=== PATIENT | female | born 1960 | race Caucasian/White ===

== ENCOUNTER → 2019-03-12 | Outpatient (CLI) | payer BC, MEDICAID, OTHER ==
--- NOTE | 2019-03-15 09:42 | MM ---
Reason for exam: screening (asymptomatic). Last mammogram was performed 3 years and 5 months ago. History: Patient is postmenopausal. Family history of breast cancer in mother at age 70. Physical Findings: A clinical breast exam by your physician is recommended on an annual basis and results should be correlated with mammographic findings. MG Screening Mammo w CAD Bilateral CC and MLO view(s) were taken. Prior study comparison: October 13, 2015, bilateral MG 3d screening mammo w/cad. September 16, 2014, mammogram, performed at [facility]. There are scattered fibroglandular densities. There is no discrete abnormality. No significant changes when compared with prior studies. ASSESSMENT: Negative, BI-RAD 1 RECOMMENDATION: Routine screening mammogram of both breasts in 1 year.
== END | disposition home or self-care (01) ==
LOC: RADMAMWWP 09:47
PROVIDERS: ATTEND Family Medicine
DX: Z12.31 Encounter for screening mammogram for malignant neoplasm of breast (principal)
CPT/HCPCS: 77067

== ENCOUNTER → 2020-12-11 | Outpatient (CLI) | payer OTHER ==
--- NOTE | 2020-12-11 15:38 | CT ---
EXAMINATION TYPE: CT abdomen pelvis wo con DATE OF EXAM: 12/11/2020 COMPARISON: None HISTORY: hematuria for several months CT DLP: 1100.3 mGycm Examination of the solid and hollow viscera is limited given the lack of contrast. FINDINGS: LUNG BASES: No evidence for nodule. No evidence for infiltrate. Small sliding-type hiatal hernia. LIVER/GB: There is evidence of cholelithiasis. No space-occupying hepatic lesion. PANCREAS: No pancreatic mass identified. No inflammatory process seen. SPLEEN: No evidence for splenomegaly. No intrasplenic lesions seen. ADRENALS: No adrenal nodules identified. No evidence for thickening. KIDNEYS: No evidence for renal mass. No nephrolithiasis. No hydronephrosis. BOWEL: Appendix has a normal appearance. No evidence of bowel obstruction. No inflammatory process. Lymph nodes: No evidence for adenopathy greater than 1 cm. Abdominal aorta: Atheromatous changes seen. No evidence for aneurysm. Genital organs: There is enlargement of the uterus. Correlate with ultrasound. Other: No significant abnormality. IMPRESSION: 1. Nonspecific uterine enlargement. Correlate with ultrasound. 2. Cholelithiasis. 3. Small hiatal hernia.
== END | disposition home or self-care (01) ==
LOC: RADCTMAIN 14:14
PROVIDERS: ATTEND Urology
DX: K80.20 Calculus of gallbladder without cholecystitis without obstruction (principal); K44.9 Diaphragmatic hernia without obstruction or gangrene
CPT/HCPCS: 74176

== ENCOUNTER → 2022-02-08 | Outpatient (CLI) | payer OTHER ==
[2022-02-08 13:36] LABS: African American GFR (CKD) >90 (>60 ml/min/1.73 sqM); Blood Urea Nitrogen 16 mg/dL (7-17); Non-African American GFR(CKD) >90 (>60 ml/min/1.73 sqM)
--- NOTE | 2022-02-08 14:56 | CT ---
EXAMINATION: CT CHEST, ABDOMEN AND PELVIS WITH IV CONTRAST DATE OF EXAMINATION: 02/08/2022. COMPARISON: CT abdomen and pelvis on 12/11/2020. INDICATION: Localized enlargement lymph nodes, anemia and hematuria. PROCEDURE: Axial CT of the chest, abdomen and pelvis was performed following the intravenous adminis tration of 70 ml Isovue 300. Coronal and sagittal reformats were performed. CT dose lowering techniq ues were used, to include: automated exposure control, adjustment for patient size, and/or use of ite rative reconstruction. FINDINGS: CHEST: Mediastinum and Yakelin: There is no axillary, mediastinal or hilar lymphadenopathy. Pleural and Pericardial spaces: There are no pleural or pericardial effusions. Cardiovascular: The thoracic aorta is normal in size without evidence of aneurysm or dissection. Pulmonary Artery: There are no central pulmonary arterial filling defects. Lung Parenchyma and Airways: The lungs are clear. ABDOMEN: Liver and Biliary system: Normal. Adrenal glands: Normal. Kidneys and ureters: Normal. Spleen: Normal. Pancreas: Normal. Gallbladder: A calcified gallstone within the gallbladder.. Lymph nodes, Peritoneum and mesentery: There is no mesenteric or retroperitoneal lymphadenopathy. Gastrointestinal tract: There are no dilated loops of bowel or free intraperitoneal air. . The appe ndix is not clearly seen and may be surgically absent as there does appear to be surgical changes jas r the base of the cecum. Aorta/IVC: There is mild vascular calcification throughout the abdominal aorta without evidence of aneurysmal dilation or dissection.. IVC normal. Abdominal wall: There is some nonspecific stranding seen within the wall in the infraumbilical regio n. A small fat-containing umbilical hernia is also seen.. PELVIS: Fluid: There is no free fluid in the pelvis. Lymph Nodes: There is no pelvic or inguinal lymphadenopathy.. Urinary bladder: Normal. BONES: There are no osseous destructive lesions.. ADDITIONAL SIGNIFICANT FINDINGS: There is marked enlargement of the uterus. There is air seen withi n the endometrial cavity. There is a masslike region seen throughout the right myometrium. These find ings would raise the possibility of malignancy, pelvic inflammatory disease and/or endometritis. DISABILITIES SERVICES OFFICER consult is recommended at this time. Question the possibility of recent procedure.. IMPRESSION: 1. Marked enlargement of the uterus. There is air seen within the endometrial cavity. There is a mass like region seen throughout the right myometrium which could potentially relate to fibroid change. Th dax findings would raise the possibility of malignancy, pelvic inflammatory disease and/or endometrit is. DISABILITIES SERVICES OFFICER consult is recommended at this time. Question the possibility of recent procedure. 2. Cholelithiasis.
== END | disposition home or self-care (01) ==
LOC: RADCTMAIN 12:04
PROVIDERS: ATTEND Internal Medicine Hematology & Oncology
DX: K80.20 Calculus of gallbladder without cholecystitis without obstruction (principal); N85.2 Hypertrophy of uterus; D64.9 Anemia, unspecified; R59.0 Localized enlarged lymph nodes; R31.9 Hematuria, unspecified
CPT/HCPCS: 82565; 84520; 71260; 74177; 36415; Q9967

== ENCOUNTER → 2022-02-20 | Outpatient (CLI) | payer OTHER ==
--- NOTE | 2022-02-21 16:48 | MM ---
Reason for Exam: Screening (asymptomatic). Last mammogram was performed 2 year(s) and 11 month(s) ago. Patient History: Menarche at age 10. First Full-Term at age 19. Postmenopausal. Mother had breast cancer, age 70. Risk Values: Belem 5 year model risk: 3.0%. NCI Lifetime model risk: 12.4%. Prior Study Comparison: 09/16/2014 Screening Mammogram, [facility]. 10/13/2015 Bilateral Screening Mammogram, [facility]. 03/12/2019 Bilateral Screening Mammogram, [facility]. Tissue Density: There are scattered fibroglandular densities. Findings: Analyzed By CAD. Pattern appears symmetrical and stable. Benign vascular calcifications present bilaterally. There is interval development of 4 heterogenous calcifications in the upper outer left mid breast 8 cm from the nipple. This isn't a normal finding. Additional evaluation is recommended No suspicious groups of microcalcifications, spiculated or lobular masses, architectural distortion or other secondary signs of malignancy are mammographically apparent. Overall Assessment: Incomplete: need additional imaging evaluation, BI-RAD 0 Management: Diagnostic Mammogram of the left breast. A negative mammogram report should not preclude additional follow up of suspicious palpable abnormalities. Patient should continue monthly self breast exam. A clinical breast exam by your physician is recommended on an annual basis and results should be correlated with mammographic findings. Electronically signed and approved by: Bonilla Decker D.O. Radiologis
== END | disposition home or self-care (01) ==
LOC: RADMAMWWP 16:14
PROVIDERS: ATTEND Family Medicine
DX: Z12.31 Encounter for screening mammogram for malignant neoplasm of breast (principal); Z78.0 Asymptomatic menopausal state; Z80.3 Family history of malignant neoplasm of breast
CPT/HCPCS: 77063; 77067

== ENCOUNTER → 2022-03-01 | Outpatient (CLI) | payer OTHER ==
--- NOTE | 2022-03-01 13:57 | MM ---
Reason for Exam: Additional evaluation requested from prior study. Last screening mammogram was performed less than 1 month ago. Patient History: Menarche at age 10. First Full-Term at age 19. Postmenopausal. Mother had breast cancer, age 70. Risk Values: Belem 5 year model risk: 3.0%. NCI Lifetime model risk: 12.4%. Prior Study Comparison: 10/13/2015 Bilateral Screening Mammogram, [facility]. 03/12/2019 Bilateral Screening Mammogram, [facility]. 02/20/2022 Bilateral MG 3D screening mammo w/cad, [facility]. Tissue Density: Left: There are scattered fibroglandular densities. Findings: Analyzed By CAD. Grouped coarse heterogenous calcifications within the upper outer left breast at middle depth. Overall Assessment: Suspicious, BI-RAD 4 Management: Stereotactic Core Biopsy of the left breast. A clinical breast exam by your physician is recommended on an annual basis and results should be correlated with mammographic findings. This exam should not preclude additional follow-up of suspicious palpable abnormalities. Results were given to the patient verbally at the time of exam. Electronically signed and approved by: Ciro Bay D.O.
== END | disposition home or self-care (01) ==
LOC: RADMAMWWP 13:32
PROVIDERS: ATTEND Family Medicine
DX: R92.8 Other abnormal and inconclusive findings on diagnostic imaging of breast (principal); Z78.0 Asymptomatic menopausal state; Z80.3 Family history of malignant neoplasm of breast
CPT/HCPCS: 77061; 77065

== ENCOUNTER → 2022-03-15 | Outpatient (CLI) | payer OTHER ==
--- NOTE | 2022-03-17 21:59 | PE ---
EXAMINATION TYPE: PET CT fusion skull to thigh DATE OF EXAM: 03/15/2022 CLINICAL INDICATION:Female, 61 years old with history of R59.0; TECHNIQUE: Following the intravenous administration of 12.4 mCi of F-18 FDG, whole body images are performed from the skull base to the midthigh. Images are reviewed on the computer in the coronal, a xial, and sagittal planes. Reconstructed rotating images are created on independent workstation and reviewed on the computer. A non-contrast CT is performed in conjunction with the PET scan. Glucose level 129 mg/dL COMPARISON: CT 02/08/2022 and 12/11/2020, PET/CT None, FINDINGS: Mediastinal SUV mean is 1.1. Hepatic parenchyma SUV mean is 2.1. SKULL BASE AND NECK: No suspicious radiotracer activity. CHEST, MEDIASTINUM, AND HILAR REGION: No suspicious radiotracer activity. ABDOMEN AND PELVIS: Enlarged uterus measuring 15.3 x 9.3 x 12.4 cm extensive increased FDG activity max SUV 13.3. Radiotr acer uptake does extends to the right lateral aspect towards the suspected right ovary max SUV 9.0. T he right ovary demonstrates similar cystic changes from 2020. Enlarged bilateral external iliac lymph nodes measuring up to 15 mm short axis on the right and 10 mm in short axis on the left without increased radiotracer uptake in this time. OSSEOUS STRUCTURES: No suspicious radiotracer activity. OTHER CT: Atherosclerosis of the arterial vasculature including the carotid bifurcations and coronary arteries. The heart is mildly enlarged for size. Cholelithiasis. Borderline splenomegaly measuring u p to 13.9 cm. IMPRESSION: 1. Enlarged heterogenous uterus with somewhat diffuse increased FDG activity throughout the parenchy ma with fingerlike extension towards the right ovary. There is somewhat similar irregular appearance of the right adnexa/right ovary with cystic changes as seen on prior CT. Given patient's age, this is highly concerning for endometrial carcinoma. Direct visualization is recommended if not already perf ormed. 2. Bilateral external iliac lymph nodes which are enlarged and without increased FDG activity, no ad ditional evidence for enlarged FDG avid lymph nodes at this time.
== END | disposition home or self-care (01) ==
LOC: RADPETMAIN 07:11
PROVIDERS: ATTEND Internal Medicine Hematology & Oncology
DX: N85.2 Hypertrophy of uterus (principal); N83.9 Noninflammatory disorder of ovary, fallopian tube and broad ligament, unspecified; R59.0 Localized enlarged lymph nodes
CPT/HCPCS: 78815; A9552

== ENCOUNTER → 2022-03-18 | Day surgery (SDC) | payer OTHER ==
[2022-03-18 07:30] VITALS: BP 150/84; PULSE 88; RESP 16; TEMP 97.7
--- NOTE | 2022-03-22 09:41 | MM ---
Risk Values: Belem 5 year model risk: 3.0%. NCI Lifetime model risk: 12.4%. Prior Study Comparison: 03/12/2019 Bilateral Screening Mammogram, [facility]. 02/20/2022 Bilateral MG 3D screening mammo w/cad, [facility]. 03/01/2022 Left MG 3D work up w/cad , [facility]. Pathology Description: Marker Left Behind. Approach: CC FA Needle Type: Eviva Skin Nicks: 1 Gauge: 9 The procedure of stereotactic guided core biopsy was explained to the patient. Benefits, alternatives, and risks were discussed. An informed consent was then obtained. The shortness pathway for biopsy was chosen. Shortness pathway was cranial approach. I performed the localization, then performed the remainder of the procedure. Overlying skin is cleansed with Betadine. Lidocaine is used as anesthetic into the skin and deeper tissue. Lidocaine with epinephrine is used as anesthetic during deeper sampling. A vacuum assisted biopsy gun was used to obtain multiple core samples. The patient tolerated the procedure well without any immediate complication. The patient was kept in the radiology department for short stay after the procedure and then discharged home in stable condition. Targeted calcifications are identified in specimen mammogram. Post biopsy mammogram shows the clip to appear in satisfactory position relative to the targeted area of concern on the preprocedure images. Impression: SUCCESSFUL, UNCOMPLICATED STEREOTACTIC GUIDED CORE BIOPSY OF AREA OF CONCERN IN THE LEFT BREAST. PATHOLOGY STATUS: Results pending Low to intermediate index of suspicion noted at time of procedure. Pathology Results: Result: Benign, Fibroadenomatoid hyperplasia. LEFT BREAST, STEREOTACTIC NEEDLE CORE BIOPSY: Fibroadenomatoid hyperplasia with calcifications and background fibrocystic changes. Overall Assessment: Benign Management: Diagnostic Mammogram of the left breast in 6 months. Electronically signed and approved by: Garcia Redd M.D.
== END ==
LOC: RADMAMWWP 06:59
PROVIDERS: ATTEND Family Medicine
DX: N60.12 Diffuse cystic mastopathy of left breast (principal); R92.1 Mammographic calcification found on diagnostic imaging of breast; N62 Hypertrophy of breast
CPT/HCPCS: 88305; 19081; A4648; J2001

== ENCOUNTER → 2024-05-20 | Outpatient (CLI) | payer MEDICARE, OTHER ==
--- NOTE | 2024-05-20 12:48 | MM ---
Reason for Exam: Screening (asymptomatic). Last mammogram was performed 2 year(s) and 3 month(s) ago. Patient History: Menarche at age 10. First Full-Term at age 19. Postmenopausal. Endometrial cancer at or over age 48. Previous Hyperplasia w/o Atypia at age 61. 03/18/2022, Benign MG stereo VAD BX LT on the left side. Mother had breast cancer, age 70. Risk Values: Belem 5 year model risk: 3.7%. NCI Lifetime model risk: 13.6%. Prior Study Comparison: 03/12/2019 Bilateral Screening Mammogram, [facility]. 02/20/2022 Bilateral MG 3D screening mammo w/cad, [facility]. 03/01/2022 Left MG 3D work up w/cad LT, [facility]. Tissue Density: The breasts are heterogeneously dense, which may obscure small masses. Findings: Analyzed By CAD. There is no suspicious group of microcalcifications or new suspicious mass in either breast. Surgical clip within the left breast. Benign-appearing calcifications. Chronic subcentimeter ulcer. I nodule upper outer right breast likely related to benign lymph node. Overall Assessment: Benign, BI-RAD 2 Management: Screening Mammogram of both breasts in 1 year. . Patient should continue monthly self-breast exams. A clinical breast exam by your physician is recommended on an annual basis. This exam should not preclude additional follow-up of suspicious palpable abnormalities. Note on Belem scores and lifetime risk: 1. A Belem score greater than 3% is considered moderate risk. If this is the case, consider specialist referral to assess eligibility for a risk reducing agent. 2. If overall lifetime risk for the development of breast cancer is 20% or higher, the patient may qualify for future screening with alternating mammogram and breast MRI. [facility], , 05/20/2024 12:45 PM. Electronically signed and approved by: Miky Arellano M.D. Radiologis
== END | disposition home or self-care (01) ==
LOC: RADMAMWWP 12:31
PROVIDERS: ATTEND Family Medicine
DX: Z12.31 Encounter for screening mammogram for malignant neoplasm of breast (principal); R92.333 Mammographic heterogeneous density, bilateral breasts; Z78.0 Asymptomatic menopausal state; Z80.3 Family history of malignant neoplasm of breast
CPT/HCPCS: 77063; 77067

== ENCOUNTER 2024-07-21 07:52 | Day surgery (SDC) | payer MEDICARE, OTHER ==
[2024-07-21 08:31] VITALS: TEMP 98.2
[2024-07-21] MEDS: IV FLUID CONTINUATION 1,000 ML IV ONE ×2 (08:40→10:31)
[2024-07-21] MEDS: LACTATED RINGERS 1,000 ML IV SCH (08:45)
[2024-07-21 08:48] LABS: Glucose,Whole Blood 126 mg/dL (70-110)
[2024-07-21] MEDS ORDERED: PROPOFOL 10 MG/ML 20 ML VIAL IV ONE (08:57)
--- NOTE | 2024-07-21 09:45 | P.PCN ---
Date of Procedure: 07/21/24 Procedure(s) Performed: BRIEF HISTORY: Patient is a 63-year-old pleasant white female scheduled for an elective colonoscopy as a part of screening for colon cancer. Her last colonoscopy was 11 years ago. PROCEDURE PERFORMED: Colonoscopy with biopsy, snare polypectomy and tattooing with Sydnee ink. PREOPERATIVE DIAGNOSIS: Screening for colon cancer. IV sedation per Anesthesia. PROCEDURE: After informed consent was obtained, the patient, was brought into the endoscopy unit. IV sedation was administered by Anesthesia under continuous monitoring. Digital rectal examination was normal. Initially the Olympus CF-160 flexible video colonoscope was then inserted in the rectum, gradually advanced into the cecum without any difficulty. Careful examination was performed as the scope was gradually being withdrawn. Ileocecal valve and the appendiceal orifice were visualized and appeared normal. Prep was excellent. Mucosa of the cecum, 1.5 cm ulcerated polypoid lesion in the base of the cecum involving y the appendiceal orifice status post multiple biopsies. Rest of the ascending colon, transverse colon, descending colon, appeared normal. In the proximal sigmoid colon at 40 cm from anal verge there was a 2 cm thick pedunculated polyp that was biopsied followed by partial snare polypectomy and tattooed with Sydnee ink. In the mid sigmoid colon at 30 cm from the anal verge there was a 3 to 4 cm round polypoid lesion status post multiple biopsies. In the distal sigmoid colon at 28 cm from anal verge there was another 4 to 5 cm long polypoid lesion and multiple biopsies were done from this area followed by tattooing with Sydnee ink. Moderate sigmoid diverticulosis seen. The rectum appeared normal. Retroflexion was performed in the rectum and no lesions were seen. The patient tolerated the procedure well. IMPRESSION: 1.5 cm ulcerated polypoid lesion in the base of the cecum involving the appendiceal orifice status post multiple biopsies 2 cm thick pedunculated polypoid lesion with ulcerations and exudates in the proximal sigmoid colon 40 cm from the anal verge status post biopsy/partial snare polypectomy followed by tattooing with Sydnee ink 3 to 4 cm round polypoid lesion in the mid sigmoid colon at 30 cm from anal verge status post multiple biopsies 4 to 5 cm round polypoid lesion in the distal sigmoid colon at 28 cm from the anal verge status post multiple biopsies followed by tattooing with Sydnee ink Moderate sigmoid diverticulosis RECOMMENDATIONS: Findings of this examination were discussed with the patient as well as her family. She was advised to follow-up with the biopsy results. She will be seen in the office in 1 week..
[2024-07-21] MEDS: ONDANSETRON 4 MG/2 ML VIAL IVP STA (10:54)
[2024-07-21 11:15] VITALS: BP 119/69; PULSE 87; RESP 14
== END 2024-07-21 11:33 | disposition home or self-care (01) ==
LOC: ORWHC2ENDO 07:52
PROVIDERS: ATTEND Internal Medicine Gastroenterology
DX: Z12.11 Encounter for screening for malignant neoplasm of colon (principal); C18.0 Malignant neoplasm of cecum; C18.7 Malignant neoplasm of sigmoid colon; K57.30 Diverticulosis of large intestine without perforation or abscess without bleeding; I10 Essential (primary) hypertension; E78.5 Hyperlipidemia, unspecified; J45.909 Unspecified asthma, uncomplicated; E11.9 Type 2 diabetes mellitus without complications; Z79.899 Other long term (current) drug therapy; Z88.8 Allergy status to other drugs, medicaments and biological substances; Z79.84 Long term (current) use of oral hypoglycemic drugs; Z79.51 Long term (current) use of inhaled steroids
CPT/HCPCS: 88305; 88342; 88341; 45380; 45385; 45381; J2405; J2704; 44404

== ENCOUNTER 2024-08-04 06:58 | Day surgery (SDC) | payer MEDICARE, OTHER ==
[~2024-08-04 06:58] MED LIST: LIDOCAINE 1% (10MG/ML) FOR IV START INTRADERMA PRN
[2024-08-04] MEDS: IV FLUID CONTINUATION 1,000 ML IV ONE (07:09)
[2024-08-04 07:15] VITALS: TEMP 97.9
[2024-08-04] MEDS: LACTATED RINGERS 1,000 ML IV SCH (07:23)
[2024-08-04 07:29] LABS: Glucose,Whole Blood 169 mg/dL (70-110)
[2024-08-04] MEDS ORDERED: PROPOFOL 10 MG/ML 20 ML VIAL IV ONE (07:58)
[2024-08-04] MEDS ORDERED: LIDOCAINE 2% (PF) 20 MG/ML 5 ML VIAL ONE (07:58)
--- NOTE | 2024-08-04 08:20 | P.PCN ---
Date of Procedure: 08/04/24 Procedure(s) Performed: BRIEF HISTORY: Patient is a 63-year-old, pleasant, white female scheduled upper endoscopy to evaluate for metastatic endometrial carcinoma.. She underwent a colonoscopy 2 weeks ago that revealed multiple polypoid lesions in the colon biopsies which revealed metastatic endometrial carcinoma. She was seen by Dr. Manrique, oncologist who recommended upper endoscopy to her upper GI metastasis PROCEDURE PERFORMED: Esophagogastroduodenoscopy. PREOPERATIVE DIAGNOSIS: Metastatic endometrial carcinoma rule out upper GI pathology. IV sedation per anesthesia. PROCEDURE: After informed consent was obtained, the patient was brought into the endoscopy unit. IV sedation was administered by Anesthesia under continuous monitoring. Initially the Olympus GIF-140 video endoscope was inserted into the mouth. Esophagus intubated without any difficulty. It was gradually advanced into the stomach and duodenum and carefully examined. The bulb and the second part of the duodenum appeared normal. The scope at this time was withdrawn to the stomach, adequately insufflated with air, and upon careful examination, mucosa of the antrum, body, cardia and the fundus appeared normal. There was moderate amount of retained solid food in the stomach suggestive of diabetic gastroparesis. The scope was then withdrawn into the esophagus. Small hiatal hernia noted. The GE junction was located at 39 cm from the incisors. The esophagus appeared normal. There were no erosions or ulcerations seen and the patient tolerated the procedure well. IMPRESSION: 1. Small hiatal hernia. 2. Retained food in the stomach suggestive of diabetic gastroparesis. RECOMMENDATIONS: The findings of this examination were discussed with the patient as well as her family. She was advised to follow-up with Dr. Manrique as scheduled..
[2024-08-04 08:58] VITALS: BP 113/66; PULSE 84; RESP 18
== END 2024-08-04 09:10 ==
LOC: ORWHC2ENDO 06:58
PROVIDERS: ATTEND Internal Medicine Gastroenterology
DX: C54.1 Malignant neoplasm of endometrium (principal); C78.5 Secondary malignant neoplasm of large intestine and rectum; K44.9 Diaphragmatic hernia without obstruction or gangrene; T18.2XXA Foreign body in stomach, initial encounter; I10 Essential (primary) hypertension; E78.5 Hyperlipidemia, unspecified; E03.9 Hypothyroidism, unspecified; J45.909 Unspecified asthma, uncomplicated; Z79.85 Long-term (current) use of injectable non-insulin antidiabetic drugs; Z79.890 Hormone replacement therapy; Z79.899 Other long term (current) drug therapy; Z88.8 Allergy status to other drugs, medicaments and biological substances; Z91.013 Allergy to seafood
CPT/HCPCS: 43235; J2704; J2003

== ENCOUNTER → 2024-08-06 | Outpatient (CLI) | payer MEDICARE, OTHER ==
--- NOTE | 2024-08-08 15:27 | PE ---
EXAMINATION TYPE: PET CT fusion skull to thigh DATE OF EXAM: 08/06/2024 COMPARISON: 07/22/2024 Prior PET/CT: 03/15/2022 CLINICAL INDICATION: Female, 63 years old with history of C54.1 MALIGNANT NEOPLASM OF ENDOMETRIUM, TECHNIQUE: Following the intravenous administration of 10.09 mCi of F-18 FDG, whole body images are performed PET CT fusion skull to thigh. Images are reviewed on the computer in the coronal, axial, a nd sagittal planes. Reconstructed rotating images are created on independent workstation and reviewe d on the computer. A localization and attenuation correction CT is performed in conjunction with e PET scan. DLP: 1082.2 mGycm SCAN: Subsequent Blood glucose: 112 mg/dL Average Mediastinum SUV: 2.57 Average Liver SUV: 3.03 FINDINGS: NECK: No abnormal uptake THORAX: No abnormal uptake ABDOMEN: No abnormal uptake PELVIS: There is some intense uptake within the region of the right hemipelvis loops of bowel. This c ould be within some redundant sigmoid. Underlying mass is not excluded. Consider follow-up with colon oscopy. OSSEOUS STRUCTURES: No abnormal uptake LOCALIZATION CT: No suspicious changes COMPARISON: There is been an interval hysterectomy. IMPRESSION: 1. No suspicious uptake to suggest recurrent or metastatic disease. 2. Uptake within redundant sigmoid loops in the right lower quadrant. Underlying colon neoplasm not e xcluded. Consider follow-up with colonoscopy. [facility], , 08/08/2024 3:25 PM
== END | disposition home or self-care (01) ==
LOC: RADPETMAIN 13:00
PROVIDERS: ATTEND Internal Medicine Hematology & Oncology
DX: C54.1 Malignant neoplasm of endometrium (principal)
CPT/HCPCS: 78815; A9552